=== PATIENT | female | born 1940 | race Caucasian/White ===

== ENCOUNTER → 2016-06-20 18:22 | Outpatient (CLI) | payer MEDICARE ==
[2009-04-21 05:37] VITALS: BMI 33.4
== END | disposition home or self-care (01) ==
LOC: D.LABREF 18:22
DX: R19.7 Diarrhea, unspecified (principal)

== ENCOUNTER → 2016-12-15 18:08 | Outpatient (CLI) | payer MEDICARE ==
[2009-04-21 05:37] VITALS: BMI 33.4
== END | disposition home or self-care (01) ==
LOC: D.LABREF 18:08
DX: M35.3 Polymyalgia rheumatica (principal)